=== PATIENT | female | born 1995 | race Caucasian/White ===

== ENCOUNTER 2018-04-13 17:14 | Emergency (ER) | payer OTHER ==
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
[2018-04-13 19:50] VITALS: BP 110/75
--- NOTE | 2018-04-14 07:53 | RAD ---
Indication: Left lower leg pain. 2 views of the left lower leg demonstrates no fracture. No other bone or joint abnormality is identified. IMPRESSION: No fracture of the left lower leg is noted. R0
--- NOTE | 2018-04-14 07:55 | RAD ---
Indication: Right shoulder pain. Single view of the right shoulder demonstrates no definite fracture or dislocation. Clavicle is intact. IMPRESSION: Single limited view of the right shoulder demonstrates no definite fracture. R0
--- NOTE | 2018-04-14 07:56 | RAD ---
Indication: Right hand pain. 2 views of the right hand demonstrates no fracture. No other bone or joint abnormality is identified. IMPRESSION: No fracture of the right hand is noted.
== END 2018-04-13 19:50 | disposition home or self-care (01) ==
LOC: ED 17:14
DX: O26.899 Other specified pregnancy related conditions, unspecified trimester (principal); M25.511 Pain in right shoulder; V89.2XXA Person injured in unspecified motor-vehicle accident, traffic, initial encounter; Y92.9 Unspecified place or not applicable; M79.605 Pain in left leg; M54.2 Cervicalgia; M79.641 Pain in right hand
CPT/HCPCS: 99282